=== PATIENT | male | born 1990 | race Caucasian/White ===

== ENCOUNTER 2018-06-01 19:02 | Inpatient (IN) | payer OTHER ==
[~2018-06-01] VITALS: Ht 165.1 cm; Wt 61.2 kg
--- NOTE | 2018-06-02 01:34 | NUR ---
PRE-ADMISSION NOTE Pt was in intake office. Pt is A/O to person, place, time, and purpose. V/S are WNL. Pt appears disheveled and has unkempt hair. Pt has a steady gait. Pt is acceptable for admittance to the unit.
[2018-06-02 01:46] LABS: *AMPHETAMINE, URINE POSITIVE (NEGATIVE); *BARBITURATE, URINE NEGATIVE (NEGATIVE); *CANNABINOID, URINE POSITIVE (NEGATIVE); *COCCAINE, URINE NEGATIVE (NEGATIVE); *OPIATE, URINE NEGATIVE (NEGATIVE); *PHENCYCLIDINE SCREEN,URINE NEGATIVE (NEGATIVE)
--- NOTE | 2018-06-02 01:49 | NUR ---
ADMISSION NOTE Pt is a 27y/o male who is being admitted for medically supervised withdrawal from methamphetamines. The pt is intoxicated and is not currently experiencing withdrawal. Pt appears disheveled and has unkempt hair. He is A/O to person, place, time, and purpose. Pt starkey s rapid speech and avoidant eye contact. Pt states that he typically does not see any withdrawal symptoms from this substance. Pt states current substance use as follows: 1. Methamphetamines: 0.25g daily for the past 2 weeks. Pt last use was 0.2g on 06/01/18 at 0130. He first began using 12 mos ago. He states that he is seeking treatment today because he is tired of my addiction having negative effects on my relationships. Pt states that it has caused to lose partners and now has forced him to become homeless. It has caused my behavior to be erratic and unpredictable. Pt states that he is ready to stop all this craziness. He states my uncle owns a treatment center and thats where Im going after here. Pt states his family is a good support system. V/S: P:78, RR:18, SPO2:98, BP:122/60. He denies pain. Pulse is strong and regular. Respirations are unlabored and even. Skin is intact. Pt follows a regular diet at home. NKA. 55 and 135lbs. He smokes about 20 cigarettes per day. Pt doesnt have a PCP or psychiatrist. Pt has never been hospitalized. Pt was educated on plan of care including detox, group and individual therapy, and discharge planning. Pt was encouraged to open and communicate. Pt was given verbal support for his in choice in recovery.
[2018-06-02] MEDS ORDERED: LOPERAMIDE HCL 2 MG CAPSULE PO PRN ×2 (02:00)
[2018-06-02] MEDS ORDERED: CLONIDINE HCL 0.1 MG TABLET PO PRN (02:00)
[2018-06-02] MEDS ORDERED: ACETAMINOPHEN 325 MG TABLET PO PRN (02:00)
[2018-06-02] MEDS ORDERED: MAG HYDROX/AL HYDROX/SIMETH 30 ML LIQUID UDC PO PRN (02:00)
[2018-06-02] MEDS ORDERED: IBUPROFEN 400 MG TABLET PO PRN (02:00)
[2018-06-02] MEDS ORDERED: LORAZEPAM 2 MG/1 ML VIAL IM PRN (02:00)
[2018-06-02] MEDS ORDERED: MIRALAX 17 GM POWD.PACK PO PRN (02:00)
[2018-06-02] MEDS ORDERED: MAGNESIUM HYDROXIDE 30 ML LIQUID UDC PO PRN (02:00)
[2018-06-02] MEDS ORDERED: HYDROXYZINE PAMOATE 25 MG CAPSULE PO PRN (02:00)
[2018-06-02] MEDS ORDERED: LORAZEPAM 1 MG TABLET PO PRN (02:00)
[2018-06-02] MEDS ORDERED: diphenhydrAMINE 50 MG CAPSULE PO PRN (02:00)
[2018-06-02] MEDS ORDERED: ONDANSETRON ODT 4 MG TAB.RAPDIS SL PRN (02:00)
[2018-06-02] MEDS ORDERED: DICYCLOMINE HCL 20 MG TABLET PO PRN (02:00)
[2018-06-02] MEDS ORDERED: ONDANSETRON 4 MG/2 ML VIAL IM PRN (02:00)
[2018-06-02 03:25] LABS: BASOPHILS % (AUTO) 0.7 % (0.0-2.0); EOSINOPHILS # (AUTO) 0.2 K/uL (0.0-0.7); HEMATOCRIT 39.3 % (36.7-47.1); HEMOGLOBIN 14.2 g/dL (12.5-16.3); LYMPHOCYTES % (AUTO) 38.7 % (20.5-51.5); MEAN CORPUSCULAR HEMOGLOBIN 33.1 uug (23.8-33.4); MEAN CORPUSCULAR HGB CONC 36 g/dL (32.5-36.3); MEAN CORPUSCULAR VOLUME 91.5 fL (73.0-96.2); MONOCYTES # (AUTO) 0.4 K/uL (2.0-10.0); MONOCYTES % (AUTO) 7.2 % (0.0-11.0); NEUTROPHILS # (AUTO) 2.6 K/uL (1.8-8.9); NEUTROPHILS % (AUTO) 49.4 % (38.5-71.5); PLATELET COUNT (AUTO) 233 K/uL (152-348); RED BLOOD CELL COUNT(AUTO) 4.29 MIL/uL (4.06-5.63); WHITE BLOOD COUNT (AUTO) 5.2 K/uL (3.6-10.2)
[2018-06-02 03:37] LABS: ALANINE AMINOTRANSFERASE 33 U/L (16-63); ALKALINE PHOSPHATASE 56 U/L (50-136); AMYLASE 57 U/L (25-115); ASPARTATE AMINOTRANSFERASE 21 U/L (15-37); BILIRUBIN,TOTAL 0.3 mg/dL (0.2-1.0); CARBON DIOXIDE 27 mmol/L (21-32); CHLORIDE 104 mmol/L (98-107); GLUCOSE 145 mg/dL (74-106); LIPASE 189 U/L (73-393); MAGNESIUM 1.8 mg/dL (1.8-2.4); POTASSIUM 3.3 mmol/L (3.5-5.1); TOTAL PROTEIN, SERUM 6.4 g/dL (6.4-8.2); UREA NITROGEN, BLOOD 18 mg/dL (7-18)
[2018-06-02 03:46] LABS: THYROID STIMULATING HORMONE 0.728 mIU/mL (0.358-3.740)
[2018-06-02 03:47] LABS: ETHANOL < 3 MG/DL (0-0)
[2018-06-02] MEDS ORDERED: POTASSIUM CHLORIDE 20 MEQ TAB.PRT.SR PO ONE ×2 (04:15→09:00)
--- NOTE | 2018-06-02 07:18 | NUR ---
END OF SHIFT NOTE Endorsed pt to oncoming nurse. Pt is a 27 y/o male A/O to person, place, time, and purpose. Pt was admitted for medically supervised withdrawal from Methamphetamines. Pt mildly intoxicated and did not show any s/s of withdrawal. Pt denies any S/I or H/I. Pt rcvd no PRN medications during the shift. Pts fluid intake was 590ml and he slept for 4hrs. Call light is within reach.
--- NOTE | 2018-06-02 07:53 | NUR ---
Start of shift Pt admits to taking methamphetamines prior to discharge. Pt is disheveled, unkempt, has not showered. Room cluttered with clothes, empty water bottles and food wrappers. Pt in bed asleep, resp even and unlabored. Pt arousable to voice and light touch. Denies c/o discomfort at this time. All safety measures in place. Bed on lowest position with side rails x2 up for safety. Call light within reach. Addendum: 06/02/18 at 0808 by Ivanna Castro RN Pt admits to taking methamphetamines prior to admission.
[2018-06-02 08:06] VITALS: BP 104/55
[2018-06-02] MEDS: MULTIVITAMINS,THERAPEUTIC TABLET PO SCH (09:10)
[2018-06-02 12:00] VITALS: BP 121/67
--- NOTE | 2018-06-02 14:57 | NUR ---
Therapist prompted client to attend group therapy sessions.
[2018-06-02 16:45] VITALS: BP 101/59
--- NOTE | 2018-06-02 18:38 | NUR ---
End of shift Pt vitals remain stable throughout the day. Appetite fair. Pt is withdrawn. disheveled, unkempt, has not showered. Room cluttered with clothes, empty water bottles and food wrappers. Pt has pending discharge tomorrow to treatment center, place TBD. No PRNs given. Encouraged Pt to attend group therapy session to identify positive coping skills to maintain sobriety. He did attend one group therapy session today. PO Fluids 1000 ml, voids x3, no BM. All safety measures in place. Bed on lowest position with side rails x2 up for safety. Call light within reach.
--- NOTE | 2018-06-02 19:30 | NUR ---
START OF SHIFT Pt is a 27 y/o male admitted for medically supervised withdrawal from Methamphetamines. Pt received sleeping in bed; breathing is even and non labored, no s/s of distress noted; no PRN meds were given during the day.Pt does not have any scheduled medications tonight and he is scheduled for discharge tomorrow morning. All safety measures are in place,call light is within reach,will continue to monitor for safety.
[2018-06-02 20:00] VITALS: BP 105/62
--- NOTE | 2018-06-03 | NUR ---
V/S REFUSED Pt resting is in bed with his eyes closed. Pt's respirations are even and non labored,no s/s of distress noted,will continue to monitor.
--- NOTE | 2018-06-03 04:00 | NUR ---
V/S REFUSED Pt resting is in bed with his eyes closed. Pt's respirations are even and non labored,no s/s of distress noted,will continue to monitor.
--- NOTE | 2018-06-03 06:43 | NUR ---
END OF SHIFT Pt is a 27 y/o male admitted for medically supervised withdrawal from Methamphetamines. Pt was received sleeping in bed; slept all night without any problem; slept 11 hours,fluid intake was 500 mls, voided x 2 . No PRN meds were given during the night. No c/o pain or s/s of distress noted, he is scheduled for discharge this morning. All safety measures are in place,call light is within reach,will continue to monitor for safety.
--- NOTE | 2018-06-03 07:30 | NUR ---
Start of Shift patient is a 27 yr old male who was admitted to [facility] on 06/02/18 for a supervised withdrawal from Amphetamines. No PRN medications were requested or required on PM shift, he slept for 11 hours and will be discharged this am to [facility]. Patient is asleep in bed at this time, breathing even and unlabored. Continue to follow MD plan for discharge.
[2018-06-03 08:00] VITALS: BP 97/53
[2018-06-03] MEDS ORDERED: TUBERCULIN,PURIF.PROT.DERIV. 5 TU/0.1 ML TEST ID ONE (09:00)
[2018-06-03] MEDS: MULTIVITAMINS,THERAPEUTIC TABLET PO SCH (09:14)
[2018-06-03 12:00] VITALS: BP 90/62
--- NOTE | 2018-06-03 12:23 | NUR ---
Therapist prompted client to attend group therapy sessions.
[2018-06-03 16:00] VITALS: BP 105/55
--- NOTE | 2018-06-03 18:54 | NUR ---
End Of Shift Patient is a 27 year old male who was admitted to [facility] on 06/02/18 for a supervised withdrawal from Methamphetamines. He has had PRN medications available , no PRN medications were required or requested on this shift. He has attended all groups and has been interacting with his peers. he had a fluid intake of 1250 ML, 3 Voids and 1 BM. He will be discharged in the AM to " [facility]". Continue to follow MD plan of care and offer support and encouragement. Endorsed to maintenance supervisor 2nd shift.
--- NOTE | 2018-06-03 19:30 | NUR ---
START OF SHIFT Pt is a 27 y/o male admitted for medically supervised withdrawal from Methamphetamines. Pt is A/A/O X 4.He is pleasant on approach,no c/o pain or s/s of distress noted; no PRN meds were given during the day.Pt does not have any scheduled medications tonight and he is scheduled for discharge tomorrow morning. All safety measures are in place,call light is within reach,will continue to monitor for safety.
[2018-06-03 20:00] VITALS: BP 110/56
--- NOTE | 2018-06-04 | NUR ---
V/S REFUSED Pt resting is in bed with his eyes closed. Pt's respirations are even and non labored,no s/s of distress noted,will continue to monitor.
--- NOTE | 2018-06-04 04:00 | NUR ---
V/S REFUSED Pt resting is in bed with his eyes closed. Pt's respirations are even and non labored,no s/s of distress noted,will continue to monitor.
[2018-06-04 04:08] LABS: HEPATITIS B SURFACE AG Negative (Negative)
--- NOTE | 2018-06-04 06:42 | NUR ---
END OF SHIFT Pt is a 27 y/o male admitted for medically supervised withdrawal from Methamphetamines. Pt was received in room,awake and alert x 4, pleasant on approach, slept all night without any problem; slept 10 hours,fluid intake was 1200 mls, voided x 1 . No PRN meds were given during the night. No c/o pain or s/s of distress noted, he is scheduled for discharge this morning. All safety measures are in place,call light is within reach,will continue to monitor for safety.
[2018-06-04 08:00] VITALS: BP 144/67
--- NOTE | 2018-06-04 08:05 | NUR ---
START OF SHIFT: Received Pt A/O X 4. He states he slept well last night. He is discharging this AM and expresses enthusiasm toward recovery.Will continue with discharge process.
[2018-06-04] MEDS: MULTIVITAMINS,THERAPEUTIC TABLET PO SCH (09:17)
--- NOTE | 2018-06-04 10:00 | NUR ---
DISCHARGE: Pt is A/O X 4. He denies S/I and H/I. He is medically cleared for discharge per MD. Educated him on discharge instructions. He expressed verbal understanding of education. Belongings returned.ART CONSERVATOR escorted Pt to [facility] where he was transported to [facility] at 0930.
== END 2018-06-04 09:30 | disposition other institution (70) | DRG 895 ==
LOC: SRC 06-02 01:04
PROVIDERS: ADMIT Family Medicine Addiction Medicine; ATTEND Family Medicine Addiction Medicine
PROC: HZ41ZZZ Group Counseling for Substance Abuse Treatment, Behavioral (ICD-10-PCS; principal; 2018-06-02)
PROC: HZ2ZZZZ Detoxification Services for Substance Abuse Treatment (ICD-10-PCS; principal; 2018-06-02)
DX: F15.23 Other stimulant dependence with withdrawal (principal); Z59.0 Homelessness; F17.210 Nicotine dependence, cigarettes, uncomplicated
CPT/HCPCS: 36415; 70030-TC; 80307; 80324; 80349; 83690; 83735; 84443; 85025; 86592; 86705; 86803; 87340; 87806; G0480